=== PATIENT | female | born 1950 ===

== ENCOUNTER → 2023-06-24 | Outpatient (CLI) | payer MEDICAID ==
[2023-06-24 08:20] LABS: Urine Bacteria None Seen /hpf (None Seen)
[2023-06-24 08:39] LABS: Urine Blood Negative /uL (Negative); Urine Clarity Clear (Clear); Urine Color Light-Yellow (Yellow); Urine Protein, UAD Negative (Negative); Urine Specific Gravity 1.013 (1.001-1.035); Urine Urobilinogen Normal (Negative); Urine WBC <1 /hpf (0 - 5); Urine pH 6.5 (5.0-9.0)
[2023-06-24 09:07] LABS: Alanine Aminotransferase 49 U/L (7-40); Albumin 4.3 g/dL (3.2-4.8); Alkaline Phosphatase 124 U/L (46-116); Anion Gap 2 (5-15); Aspartate Aminotransferase 55 U/L (13-40); BUN/Creatinine Ratio 18.1 (10.0-20.0); Bilirubin, Total 0.5 mg/dL (0.2-1.0); Blood Urea Nitrogen 13 mg/dL (9-23); Calcium 9.3 mg/dL (8.5-10.1); Carbon Dioxide 32 mmol/L (20-30); Chloride 106 mmol/L (98-107); Cholesterol 194 mg/dL (< 200); Creatinine, Urine 57.37 mg/dL (30.0-125.0); Glucose 134 mg/dL (74-106); HDL Cholesterol 39 mg/dL (40-59); LDL Cholesterol 143 mg/dL (< 100); Potassium 4.6 mmol/L (3.5-5.1); Sodium 140 mmol/L (136-145); Triglycerides 158 mg/dL (< 150)
[2023-06-24 09:10] LABS: Micro Albumin < 3.0 mg/L (<30.0)
[2023-06-26 01:06] LABS: Chlamydia Trachomatis, NAA Negative (Negative); Neisseria gonorrhoeae, NAA Negative (Negative)
== END | disposition home or self-care (01) ==
LOC: LAB 08:08
PROVIDERS: ATTEND Family Medicine
DX: Z00.01 Encounter for general adult medical examination with abnormal findings (principal); E11.65 Type 2 diabetes mellitus with hyperglycemia; E55.9 Vitamin D deficiency, unspecified; E78.5 Hyperlipidemia, unspecified; E03.9 Hypothyroidism, unspecified; K21.9 Gastro-esophageal reflux disease without esophagitis; I25.2 Old myocardial infarction
CPT/HCPCS: 36415; 80053; 80061; 81001; 82043; 82306; 82570; 83036; 84443

== ENCOUNTER → 2024-07-11 | Outpatient (CLI) | payer MEDICAID ==
[2024-07-11 09:49] LABS: Urine Bacteria None Seen /hpf (None Seen)
[2024-07-11 10:04] LABS: Basophils # (auto) 0.1 10 ^3/uL (0-0.2); Basophils % (auto) 1.1 % (0.0-2.0); Eosinophils # (auto) 0.2 10 ^3/uL (0-0.8); Eosinophils % (auto) 2.4 % (0.0-7.0); Hematocrit 42.1 % (36.0-46.0); Hemoglobin 14.2 g/dL (12.2-16.2); Lymphocytes # (auto) 2.5 10 ^3/uL (0.4-5.4); Mean Corpuscular Hemoglobin 32.5 pg (28.0-32.0); Mean Corpuscular Hgb Conc. 33.7 g/dL (32.0-36.0); Mean Corpuscular Volume 96.6 fL (80.0-100.0); Monocytes # (auto) 0.2 10 ^3/uL (0-1.3); Monocytes % (auto) 3.6 % (0.0-12.0); Neutrophils # (auto) 3.4 10 ^3/uL (1.6-8.6); Neutrophils % (auto) 53.9 % (37.0-80.0); Nucleated Red Blood Cells % 0.1 %; Platelet Count (auto) 172 10^3/uL (140-450); Red Blood Cells 4.36 10^6/uL (4.0-5.20); Red Cell Distribution Width 13.5 % (11.8-14.3); White Blood Cell 6.3 10^3/uL (4.4-10.8)
[2024-07-11 11:05] LABS: Urine Blood Negative /uL (Negative); Urine Clarity Clear (Clear); Urine Color Light-Yellow (Yellow); Urine Protein, UAD Negative (Negative); Urine Specific Gravity 1.012 (1.001-1.035); Urine Squamous Epithelial Cell FEW /hpf (<5); Urine Urobilinogen Normal (Negative); Urine WBC 1 /HPF (0-5); Urine pH 6.5 (5.0-9.0)
[2024-07-11 11:18] LABS: Anion Gap 6 (5-15); BUN/Creatinine Ratio 24.7 (10.0-20.0); Blood Urea Nitrogen 18 mg/dL (9-23); Carbon Dioxide 30 mmol/L (20-31); Chloride 105 mmol/L (98-107); Cholesterol 160 mg/dL (< 200); Potassium 4.1 mmol/L (3.5-5.1); Sodium 141 mmol/L (136-145); Total Protein 7.6 g/dL (5.7-8.2); Triglycerides 130 mg/dL (< 150)
[2024-07-11 11:19] LABS: Bilirubin, Total 0.7 mg/dL (0.2-1.0)
[2024-07-11 11:24] LABS: Alanine Aminotransferase 42 U/L (7-40); Albumin 4.8 g/dL (3.2-4.8); Alkaline Phosphatase 137 U/L (46-116); Aspartate Aminotransferase 46 U/L (13-40); Glucose 130 mg/dL (74-106); HDL Cholesterol 35 mg/dL (40-59); LDL Cholesterol 108 mg/dL (< 100)
[2024-07-11 13:49] LABS: Uric Acid 5.3 mg/dL (3.1-7.8)
== END | disposition home or self-care (01) ==
LOC: LAB 09:26
PROVIDERS: ATTEND Family Medicine
DX: E11.22 Type 2 diabetes mellitus with diabetic chronic kidney disease (principal); N18.2 Chronic kidney disease, stage 2 (mild); E11.65 Type 2 diabetes mellitus with hyperglycemia; E55.9 Vitamin D deficiency, unspecified; E78.5 Hyperlipidemia, unspecified; E03.9 Hypothyroidism, unspecified; K21.9 Gastro-esophageal reflux disease without esophagitis; I48.20 Chronic atrial fibrillation, unspecified; E63.9 Nutritional deficiency, unspecified
CPT/HCPCS: 36415; 80053; 80061; 81001; 82043; 83036; 84443; 84550; 85025

== ENCOUNTER → 2024-07-11 | Outpatient (CLI) | payer MEDICAID | END | disposition home or self-care (01) | LOC: LAB 12:02 | PROVIDERS: ATTEND Family Medicine | DX: Z12.11 Encounter for screening for malignant neoplasm of colon (principal) | CPT/HCPCS: 82270 ==